=== PATIENT | male | born 1995 | race African-American/Black ===

== ENCOUNTER 2022-09-04 23:23 | Emergency (ER) | payer SELFPAY ==
[~2022-09-04] VITALS: Ht 182.9 cm; Wt 67.0 kg
[2022-09-04 23:31] VITALS: BP 135/87
[2022-09-04] MEDS ORDERED: FLUORESCEIN SODIUM 1MG/STRIP LEFTEYE ONE (23:45)
[2022-09-04] MEDS ORDERED: TETRACAINE 0.5% OPHTH DROPS 4ML LEFTEYE ONE (23:45)
[2022-09-05] MEDS ORDERED: IBUP-2029 MT (01:17)
[2022-09-05] MEDS ORDERED: DEXT15DR5 LEFTEYE (01:17)
[2022-09-05] MEDS ORDERED: ERYT1OIN6 LEFTEYE (01:17)
== END 2022-09-05 01:46 | disposition home or self-care (01) ==
LOC: ER 23:23
DX: S00.12XA Contusion of left eyelid and periocular area, initial encounter (principal); X58.XXXA Exposure to other specified factors, initial encounter; Y93.89 Activity, other specified; Y92.9 Unspecified place or not applicable
CPT/HCPCS: 99283